=== PATIENT | female | born 2000 | race African-American/Black ===

== ENCOUNTER 2018-04-12 11:49 | Emergency (ER) | payer MEDICAID ==
[~2018-04-12] VITALS: Ht 165.1 cm; Wt 73.0 kg
[2018-04-12] MEDS ORDERED: SODIUM CHLORIDE 0.9% 1,000 ML IV ONE (12:24)
[2018-04-12] MEDS ORDERED: METOCLOPRAMIDE HCL 5MG TABLET PO ONE (12:30)
[2018-04-12 13:10] LABS: CLARITY URINE CLOUDY (CLEAR); COLOR URINE YELLOW (YELLOW); KETONES URINE NEGATIVE (NEGATIVE); LEUKOCYTE ESTERASE URINE 2+ (NEGATIVE); NITRITE URINE NEGATIVE (NEGATIVE); OCCULT BLOOD URINE NEGATIVE (NEGATIVE); PROTEIN URINE NEGATIVE (NEGATIVE); SPECIFIC GRAVITY URINE 1.027 (1.005-1.030)
[2018-04-12 13:26] LABS: BASOPHILS % 0.6 % (0.0-2.0); HEMATOCRIT. 35.9 % (36.0-48.0); HEMOGLOBIN. 12.3 g/dL (12.0-16.0); MEAN CORPUSCULAR HEMOGLOBIN 30.1 pg (28.0-32.0); MEAN CORPUSCULAR VOLUME 87.9 fL (81.0-99.0); MEAN PLATELET VOLUME 7.9 fl (7.4-10.4); MONOCYTES % 9.1 % (2.0-8.0); NEUTROPHILS % 63.3 % (40.0-76.0); PLATELET 280 x1000/uL (130-400); RED BLOOD CELL COUNT 4.08 mill/uL (4.2-5.4); RED CELL DISTRIBUTION WIDTH 14.2 % (11.6-14.6)
[2018-04-12 13:32] LABS: CHLORIDE 107 mEq/L (98-107)
[2018-04-12 13:55] LABS: B-HCG QUANTITATIVE 30093 mIU/mL (<3)
[2018-04-12 17:40] VITALS: BP 122/74
== END 2018-04-12 18:00 | disposition home or self-care (01) ==
LOC: ER 13:21
DX: O26.891 Other specified pregnancy related conditions, first trimester (principal); O21.0 Mild hyperemesis gravidarum; E86.0 Dehydration; O23.41 Unspecified infection of urinary tract in pregnancy, first trimester; D72.821 Monocytosis (symptomatic); O26.831 Pregnancy related renal disease, first trimester; N17.0 Acute kidney failure with tubular necrosis; O99.111 Other diseases of the blood and blood-forming organs and certain disorders involving the immune mechanism complicating pregnancy, first trimester; O99.281 Endocrine, nutritional and metabolic diseases complicating pregnancy, first trimester; Z3A.01 Less than 8 weeks gestation of pregnancy
CPT/HCPCS: 36415; 76801; 76817; 80053; 81003; 81025; 83036; 84702; 85025; 96360; 96361; 99285; J7030; J8597

== ENCOUNTER 2020-03-10 08:23 | Emergency (ER) | payer MEDICAID ==
[~2020-03-10] VITALS: Ht 170.2 cm; Wt 93.4 kg
[2020-03-10] MEDS ORDERED: LIDOCAINE HCL 1%/EPI 1:200,000 30 ML VIAL MC ONE (09:00)
[2020-03-10] MEDS ORDERED: LIDOCAINE HCL/EPINEPHRINE 1%-EPI 1:100,000 20 ML VIAL MC SCH (09:00)
[2020-03-10 10:12] VITALS: BP 133/75
== END 2020-03-10 10:14 | disposition home or self-care (01) ==
LOC: ER 08:23
DX: T18.0XXA Foreign body in mouth, initial encounter (principal); X58.XXXA Exposure to other specified factors, initial encounter
CPT/HCPCS: 12011; 99283; J3490; 99282

== ENCOUNTER 2020-04-16 10:10 | Observation (INO) | payer MEDICAID ==
[~2020-04-16] VITALS: Ht 167.6 cm; Wt 95.3 kg
== END 2020-04-16 11:20 | disposition home or self-care (01) ==
LOC: ER 10:20 → 8 EST LDRP 10:27
PROVIDERS: ADMIT Specialist; ATTEND Specialist
DX: O21.2 Late vomiting of pregnancy (principal); O26.893 Other specified pregnancy related conditions, third trimester; R10.2 Pelvic and perineal pain; Z3A.29 29 weeks gestation of pregnancy
CPT/HCPCS: 99281; G0378

== ENCOUNTER 2020-06-30 09:09 | Inpatient (IN) | payer MEDICAID ==
[~2020-06-30] VITALS: Ht 167.6 cm; Wt 98.0 kg
[2020-06-30] MEDS ORDERED: DEXT 5%/LR + PITOCIN 20UNITS/L 1,000 ML IV SCH (10:10)
[2020-06-30] MEDS ORDERED: IBUPROFEN 400MG TABLET PO PRN (10:15)
[2020-06-30] MEDS ORDERED: LACTATED RINGERS 1,000 ML IV SCH (10:15)
[2020-06-30] MEDS ORDERED: IBUPROFEN 800MG TABLET PO PRN (10:15)
[2020-06-30] MEDS ORDERED: RHO(D) IMMUNE GLOBULIN 300 MCG/SYR IM PRN (10:15)
[2020-06-30] MEDS ORDERED: BENZOCAINE/LANOLIN/ALOE VERA SPRAY TOP PRN (10:15)
[2020-06-30 10:32] LABS: BASOPHILS % 0.5 % (0.0-2.0); EOSINOPHILS % 0.5 % (0.0-5.0); HEMATOCRIT. 34.9 % (36.0-48.0); HEMOGLOBIN. 11.9 g/dL (12.0-16.0); LYMPHOCYTES % 33.8 % (20.0-50.0); MEAN CORPUSCULAR HEMOGLOBIN 29.9 pg (28.0-32.0); MEAN CORPUSCULAR VOLUME 87.4 fL (81.0-99.0); MEAN PLATELET VOLUME 8.6 fl (7.4-10.4); MONOCYTES % 6.8 % (2.0-8.0); NEUTROPHILS % 58.4 % (40.0-76.0); PLATELET 228 x1000/uL (130-400); RED BLOOD CELL COUNT 3.99 mill/uL (4.2-5.4); RED CELL DISTRIBUTION WIDTH 13.5 % (11.6-14.6)
[2020-06-30 10:42] LABS: *COCAINE SCREEN URINE NEGATIVE (NEGATIVE); METHADONE URINE SCREEN NEGATIVE (NEGATIVE); OPIATES URINE SCREEN NEGATIVE (NEGATIVE)
[2020-06-30 10:43] LABS: *AMPHETAMINES SCREEN URINE NEGATIVE (NEGATIVE); *BARBITURATES SCREEN URINE NEGATIVE (NEGATIVE); *BENZODIAZEPINES SCREEN URINE NEGATIVE (NEGATIVE); CANNABINOID URINE SCREEN NEGATIVE (NEGATIVE); PHENCYCLIDINE URINE SCREEN NEGATIVE (NEGATIVE)
[2020-06-30] MEDS ORDERED: AMPICILLIN 2,000 MG in SODIUM CHLORIDE 0.9% 100 ML IV SCH (11:00)
[2020-06-30 11:25] VITALS: BP 120/80
[2020-06-30 11:47] LABS: HEPATITIS B SURFACE ANTIGEN NEGATIVE
[2020-06-30 12:00] VITALS: BP 122/75
[2020-06-30 19:52] VITALS: BP 113/72
[2020-07-01 04:00] VITALS: BP 106/54
[2020-07-01 06:57] LABS: BASOPHILS % 0.7 % (0.0-2.0); EOSINOPHILS % 0.6 % (0.0-5.0); HEMATOCRIT. 29.7 % (36.0-48.0); HEMOGLOBIN. 10.2 g/dL (12.0-16.0); MEAN CORPUSCULAR HEMOGLOBIN 30.1 pg (28.0-32.0); MEAN PLATELET VOLUME 8.3 fl (7.4-10.4); MONOCYTES % 7.9 % (2.0-8.0); NEUTROPHILS % 59.8 % (40.0-76.0); PLATELET 204 x1000/uL (130-400); RED BLOOD CELL COUNT 3.38 mill/uL (4.2-5.4); RED CELL DISTRIBUTION WIDTH 13.8 % (11.6-14.6)
[2020-07-01 08:00] VITALS: BP 114/74
== END 2020-07-01 12:40 | disposition home or self-care (01) | DRG 560 ==
LOC: 8 EST A/PP 09:09 → OBSVTOIN 09:09 → 8EST 11:00
PROVIDERS: ADMIT Obstetrics & Gynecology; ATTEND Obstetrics & Gynecology
PROC: 10E0XZZ Delivery of Products of Conception, External Approach (ICD-10-PCS; principal; 2020-06-30)
PROC: 0HQ9XZZ Repair Perineum Skin, External Approach (ICD-10-PCS; 2020-06-30)
DX: O77.0 Labor and delivery complicated by meconium in amniotic fluid (principal); O70.0 First degree perineal laceration during delivery; Z3A.40 40 weeks gestation of pregnancy; Z37.0 Single live birth
CPT/HCPCS: 36415; 80305; 85025; 86592; 86703; 86762; 86850; 86900; 87340; 99281; J0290; J2590; J7050; J7120

== ENCOUNTER 2021-11-23 07:51 | Emergency (ER) | payer MEDICAID ==
[~2021-11-23] VITALS: Ht 170.2 cm; Wt 98.0 kg
[2021-11-23 08:06] VITALS: BP 143/96
[2021-11-23] MEDS ORDERED: FAMOTIDINE 20MG/2ML VIAL IV STA (08:12)
[2021-11-23] MEDS ORDERED: SODIUM CHLORIDE 0.9% 1,000 ML IV ONE (08:15)
[2021-11-23] MEDS ORDERED: ONDANSETRON 4MG ODT PO ONE (08:15)
[2021-11-23] MEDS ORDERED: ACETAMINOPHEN 325MG TABLET PO ONE (08:15)
== END 2021-11-23 15:16 | disposition left against medical advice (07) ==
LOC: ER 07:51
DX: O26.892 Other specified pregnancy related conditions, second trimester (principal); R11.2 Nausea with vomiting, unspecified; R51.9 Headache, unspecified; Z3A.28 28 weeks gestation of pregnancy
CPT/HCPCS: 99281; J7030

== ENCOUNTER 2025-09-29 10:43 | Emergency (ER) | payer MEDICAID ==
[~2025-09-29] VITALS: Ht 170.2 cm; Wt 85.0 kg
[~2025-09-29 10:43] MED LIST: IBUP-2030 PO
[2025-09-29 10:50] VITALS: BP 126/80; TEMP 36.8; O2SAT 99
[2025-09-29 10:57] VITALS: PULSE 98; RESP 18; O2SAT 100
[2025-09-29 13:30] VITALS: TEMP 98.2
[2025-09-29] MEDS: ACETAMINOPHEN 500MG TABLET PO ONE (13:30)
[2025-09-29] MEDS ORDERED: IBUP-1455 MT (14:33)
[2025-09-29] MEDS: BACITRACIN ZINC OINT UDPKT TOP ONE (15:14)
== END 2025-09-29 15:23 | disposition home or self-care (01) ==
LOC: ER 10:43
DX: S61.215A Laceration without foreign body of left ring finger without damage to nail, initial encounter (principal); W26.0XXA Contact with knife, initial encounter; X58.XXXA Exposure to other specified factors, initial encounter; Y93.89 Activity, other specified; Y92.89 Other specified places as the place of occurrence of the external cause; Y99.8 Other external cause status
CPT/HCPCS: 12001; 99283